=== PATIENT | male | born 1985 | race Caucasian/White ===

== ENCOUNTER 2016-09-22 09:23 | Emergency (ER) | payer SELFPAY ==
[2016-09-22 09:33] VITALS: TEMP 97.5
--- NOTE | 2016-09-22 10:40 | ED ---
Extremity Problem HPI - General Chief complaint: Extremity Problem,Nontraumatic Stated complaint: leg pain Time Seen by Provider: 09/22/16 09:35 Source: patient, RN notes reviewed Mode of arrival: ambulatory Limitations: no limitations - History of Present Illness Initial comments: 31-year-old male presents emergency Department with chief complaint of left leg pain. Patient states started 1 month ago. Patient states that he's had varicose veins in the past but states this is a worse. Patient states is a large lump on the left calf region. He states it is very painful. Patient states that he does not wearing compression stockings. 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 Patient states is painful to press on the area. Patient denies any chest pain or shortness of breath. - Related Data Previous Rx's Medication Instructions Recorded Cephalexin [Keflex] 500 mg PO Q6HR #40 cap 09/22/16 HYDROcodone/IBUPROFEN 7.5-200 1 tab PO Q6HR PRN #20 tab 09/22/16 [Vicoprofen 7.5-200 mg] Allergies Allergy/AdvReac Type Severity Reaction Status Date / Time acetaminophen [From Tylenol] Allergy Rash/Hives Verified 09/22/16 09:33 Review of Systems ROS Statement: Those systems with pertinent positive or pertinent negative responses have been documented in the HPI. ROS Other: All systems not noted in ROS Statement are negative. Past Medical History Additional Past Medical History / Comment(s): varicose veins History of Any Multi-Drug Resistant Organisms: None Reported Past Surgical History: No Surgical Hx Reported Past Psychological History: No Psychological Hx Reported Smoking Status: Current every day smoker Past Alcohol Use History: None Reported Past Drug Use History: None Reported General Exam Limitations: no limitations General appearance: alert, in no apparent distress Respiratory exam: Present: normal lung sounds bilaterally. Absent: respiratory distress, wheezes, rales, rhonchi, stridor Cardiovascular Exam: Present: regular rate, normal rhythm, normal heart sounds. Absent: systolic murmur, diastolic murmur, rubs, gallop, clicks Extremities exam: Present: other (Left calf there is a 3 cm area of erythema, swelling that is elevated approximately 2-3 cm areas moderately tender with palpation) Neurological exam: Present: alert, oriented X3, CN II-XII intact Skin exam: Present: warm, dry Course Vital Signs 09/22/16 09:31 Temperature 97.5 F L Pulse Rate 60 Respiratory 20 Rate Blood Pressure 124/56 O2 Sat by Pulse 100 Oximetry Medical Decision Making - Medical Decision Making 31-year-old male presents emergency Department with chief complaint of left calf pain, swelling. Patient appears to have a tortuous vessel versus infection. This most likely is a superficial bite is from varicosity. Patient Presented to have infection as his been going on for 1 month. Patient will be started on antibiotics prophylactically and felt up with Dr. Dao vascular surgeon. Patient will apply warm compresses. Disposition Clinical Impression: Superficial thrombophlebitis of left leg, Left leg pain Disposition: HOME SELF-CARE Condition: Stable Instructions: Superficial Thrombophlebitis (ED) Additional Instructions: Apply warm compresses 20 minutes at a time. Please follow-up with vascular surgery as directed.Please return to the Emergency Department if symptoms worsen or any other concerns. Prescriptions: Cephalexin [Keflex] 500 mg PO Q6HR #40 cap HYDROcodone/IBUPROFEN 7.5-200 [Vicoprofen 7.5-200 mg] 1 tab PO Q6HR PRN #20 tab PRN Reason: Pain Referrals: None,Stated [Primary Care Provider] - 1-2 days Greg Dao MD [STAFF PHYSICIAN] - 1-2 days
--- NOTE | 2016-09-22 10:42 | US ---
EXAMINATION TYPE: US extremity nonvasc mass LT DATE OF EXAM: 09/22/2016 10:20 AM COMPARISON: No previous CLINICAL HISTORY: 31-year-old male with left leg pain, palpable area posterior left lower leg. TECHNIQUE: Targeted scanning at the painful palpable site along the left calf. FINDINGS: TECHNOLOGIST NOTES: Scanned posterior left lower leg palpable/painful area: thrombus seen within sup erficial vein. However, there is a 2.9 x 2.1 x 3.4cm complex area: Possible enlarged area of tortuou s thrombosed vessel vs. mass vs. other. IMPRESSION: Targeted scanning at the palpable painful area along the left calf shows SVT and a heterogeneous comp falguni 3.4 cm masslike area. The exact etiology is unclear. This could represent an enlarged, ectatic th rombosed vein, hematoma, phlegmon, or mass. Careful clinical correlation is recommended. Close clinic al follow-up is also recommended. If the finding persists or enlarges, contrast enhanced MRI can be p erformed.
[2016-09-22 11:46] VITALS: BP 125/60; PULSE 72; RESP 16
== END 2016-09-22 11:44 | disposition home or self-care (01) ==
LOC: EC 09:23
DX: I80.02 Phlebitis and thrombophlebitis of superficial vessels of left lower extremity (principal); F17.200 Nicotine dependence, unspecified, uncomplicated; Z88.8 Allergy status to other drugs, medicaments and biological substances
CPT/HCPCS: 99283

== ENCOUNTER 2017-11-04 19:44 | Emergency (ER) | payer OTHER ==
[2017-11-04 20:39] VITALS: BP 117/60; PULSE 58; RESP 16; TEMP 97.7
[2017-11-04] MEDS ORDERED: PROPARACAINE 0.5% OPHTH DROPS 15 ML BTL LEFT EYE STA (20:42)
--- NOTE | 2017-11-04 21:03 | ED ---
General Adult HPI - General Chief complaint: Eye Problems Stated complaint: metal in eye Time Seen by Provider: 11/04/17 20:41 Source: patient, RN notes reviewed Mode of arrival: ambulatory Limitations: no limitations - History of Present Illness Initial comments: Patient 32-year-old male presenting to the emergency room today with a chief complaint of foreign body to left eye. He states her tetanus car today. States he got a piece of metal in his eye when he was underneath a car. He states he thought it was be centered present. Unable to get out. He states he can see just underneath the pupil. Patient states is unsure of his tetanus status. He denies any other complaints or symptoms. Patient denies any recent fever, chills, shortness of breath, chest pain, back pain, abdominal pain, nausea or vomiting, constipation or diarrhea, headaches or visual changes, or any other complaints. - Related Data Previous Rx's Medication Instructions Recorded Cephalexin [Keflex] 500 mg PO Q6HR #40 cap 09/22/16 HYDROcodone/IBUPROFEN 7.5-200 1 tab PO Q6HR PRN #20 tab 09/22/16 [Vicoprofen 7.5-200 mg] Tobramycin 0.3% Ophth Soln [Tobrex 1 - 2 drop BOTH EYES QID 7 Days ml 11/04/17 0.3% Ophth Soln] Allergies Allergy/AdvReac Type Severity Reaction Status Date / Time acetaminophen [From Tylenol] Allergy Rash/Hives Verified 11/04/17 20:39 Review of Systems ROS Statement: Those systems with pertinent positive or pertinent negative responses have been documented in the HPI. ROS Other: All systems not noted in ROS Statement are negative. Past Medical History Past Medical History: Deep Vein Thrombosis (DVT) Additional Past Medical History / Comment(s): varicose veins History of Any Multi-Drug Resistant Organisms: None Reported Past Surgical History: No Surgical Hx Reported Past Psychological History: No Psychological Hx Reported Smoking Status: Current every day smoker Past Alcohol Use History: None Reported Past Drug Use History: None Reported General Exam - General Exam Comments Initial Comments: General: The patient is awake and alert, in no distress, and does not appear acutely ill. Eye: Pupils are equal, round and reactive to light, extra-ocular movements are intact. No nystagmus. There is normal conjunctiva bilaterally. No signs of icterus. Patient does have a rust ring at the 6 o'clock position. Ears, nose, mouth and throat: There are moist mucous membranes and no oral lesions. Neck: The neck is supple, there is no tenderness or JVD. Musculoskeletal: Normal ROM, no tenderness. Strength 5/5. Sensation intact. Pulses equal bilaterally 2+. Neurological: A&O x 3. CN II-XII intact, There are no obvious motor or sensory deficits. Coordination appears grossly intact. Speech is normal. Skin: Skin is warm and dry and no rashes or lesions are noted. Psychiatric: Cooperative, appropriate mood & affect, normal judgment. Limitations: no limitations Course Vital Signs 11/04/17 20:35 Temperature 97.7 F Pulse Rate 58 L Respiratory 16 Rate Blood Pressure 117/60 O2 Sat by Pulse 99 Oximetry Procedures - Procedures Initial comment: Patient's left eye anesthetized with a cane. This did relieve his symptoms. Patient's left eye was stained with forcing. Metallic body at the 6 o'clock position. Small spud was used to remove the foreign body. Rust ring does remain. No [place] brush available to remove rust ring. Patient tolerated procedure well. Medical Decision Making - Medical Decision Making Patient's left eye was anesthetized locally with proparacaine. A small spot was used to remove the metallic foreign body. Rust ring does remain. We currently do not have an [place] brush available here in the ER to remove rust ring. Patient advised that he'll have to follow-up with ophthalmology tomorrow. Patient's tetanus updated. Started on antibiotic drops. Disposition Clinical Impression: Foreign body, eye, Corneal rust ring of left eye Disposition: HOME SELF-CARE Condition: Good Instructions: Eye Foreign Body (ED) Additional Instructions: Please follow-up with ophthalmology tomorrow to have rust ring removed. Please continue antibiotic drops. Please return to emergency room for any other concerns. Prescriptions: Tobramycin 0.3% Ophth Soln [Tobrex 0.3% Ophth Soln] 1 - 2 drop BOTH EYES QID 7 Days ml Referrals: None,Stated [Primary Care Provider] - 1-2 days Palmer Pretty MD [STAFF PHYSICIAN] - 1-2 days Time of Disposition: 21:23
[2017-11-04] MEDS ORDERED: DIPH,PERTUS(ACELL)TETVAC-LF 0.5 ML VIAL IM ONE (21:32)
== END 2017-11-04 21:27 | disposition home or self-care (01) ==
LOC: EC 19:44
DX: T15.02XA Foreign body in cornea, left eye, initial encounter (principal); F17.200 Nicotine dependence, unspecified, uncomplicated; Z88.6 Allergy status to analgesic agent; Y92.89 Other specified places as the place of occurrence of the external cause
CPT/HCPCS: 65220; 90471; 90715; 99283

== ENCOUNTER 2018-07-10 11:11 | Emergency (ER) | payer OTHER ==
[2018-07-10 11:29] VITALS: BP 120/79; PULSE 57; RESP 16; TEMP 98.1
[2018-07-10] MEDS ORDERED: LIDOCAINE/EPINEPHR/TETRACAINE 5 ML BOTTLE TOPICAL ONE (11:58)
--- NOTE | 2018-07-10 12:45 | ED ---
Wound/Laceration HPI - General Chief Complaint: Wound/Laceration Stated Complaint: [facility] facial laceration Time Seen by Provider: 07/10/18 11:52 Source: patient, RN notes reviewed Mode of arrival: ambulatory Limitations: no limitations - History of Present Illness Initial Comments: 33-year-old male presents emergency Department with chief complaint of facial laceration. Patient states he was using a tire bar to pry on large tire states it slipped striking him in the face. There is no loss conscious. Patient states pain is pretty significant to his left cheek. Denies any blurred vision no ocular injury denies any pain with ocular movement denies any headache, loss conscious, dizziness, focal weakness, nausea vomiting. Patient's tetanus is up- to-date within last one year. - Related Data Home Medications Medication Instructions Recorded Confirmed Ibuprofen [Motrin Ib] 400 mg PO Q6H PRN 07/10/18 07/10/18 Previous Rx's Medication Instructions Recorded Cephalexin [Keflex] 500 mg PO Q6HR #28 cap 07/10/18 Ibuprofen [Motrin] 600 mg PO Q8HR PRN #30 tab 07/10/18 Allergies Allergy/AdvReac Type Severity Reaction Status Date / Time acetaminophen [From Tylenol] Allergy Rash/Hives Verified 07/10/18 11:59 Review of Systems ROS Statement: Those systems with pertinent positive or pertinent negative responses have been documented in the HPI. ROS Other: All systems not noted in ROS Statement are negative. Past Medical History Past Medical History: Deep Vein Thrombosis (DVT) Additional Past Medical History / Comment(s): varicose veins History of Any Multi-Drug Resistant Organisms: None Reported Past Surgical History: No Surgical Hx Reported Past Psychological History: No Psychological Hx Reported Smoking Status: Current every day smoker Past Alcohol Use History: Rare Past Drug Use History: None Reported General Exam Limitations: no limitations General appearance: alert, in no apparent distress Head exam: Present: atraumatic, normocephalic, normal inspection Eye exam: Present: normal appearance, PERRL, EOMI. Absent: scleral icterus, conjunctival injection, periorbital swelling ENT exam: Present: normal oropharynx, mucous membranes moist, TM's normal bilaterally, normal external ear exam. Absent: other (Laceration to the left cheek approximately 2 cm) Neck exam: Present: normal inspection, full ROM. Absent: tenderness, meningismus, lymphadenopathy Respiratory exam: Present: normal lung sounds bilaterally. Absent: respiratory distress, wheezes, rales, rhonchi, stridor Cardiovascular Exam: Present: regular rate, normal rhythm, normal heart sounds. Absent: systolic murmur, diastolic murmur, rubs, gallop, clicks Neurological exam: Present: alert, oriented X3, CN II-XII intact, reflexes normal, other (Finger to nose intact bilaterally without over shooting). Absent : motor sensory deficit Course Vital Signs 07/10/18 11:22 Temperature 98.1 F Pulse Rate 57 L Respiratory 16 Rate Blood Pressure 120/79 O2 Sat by Pulse 97 Oximetry Procedures - Laceration Laceration #1 Consent Obtained: verbal consent Time Out Performed: Yes Indication: laceration Site: face Size (cm): 2 Description: irregular Anesthetic Used: lidocaine 1%, without epi Anesthesia Technique: local infiltration Amount (mls): 3 Pre-repair: wound explored, irrigated extensively, deep structures intact Type of Sutures: nylon Size of Sutures: 6-0 Number of Sutures: 4 Technique: simple, interrupted Patient Tolerated Procedure: well, no complications Medical Decision Making - Medical Decision Making 33-year-old male present emergency from for facial injury, laceration. CT was obtained secondary to trauma. No acute fracture. Laceration was closed, thoroughly cleaned we discharged on antibiotics. Return parameters discussed wound care was discussed Disposition Clinical Impression: Facial laceration, Facial contusion Disposition: HOME SELF-CARE Condition: Stable Instructions: Care For Your Stitches (ED), Facial Laceration (ED) Additional Instructions: Please return to the Emergency Department if symptoms worsen or any other concerns.., Have sutures removed in 7 days. Prescriptions: Cephalexin [Keflex] 500 mg PO Q6HR #28 cap Ibuprofen [Motrin] 600 mg PO Q8HR PRN #30 tab PRN Reason: Pain Is patient prescribed a controlled substance at d/c from ED?: No Referrals: None,Stated [Primary Care Provider] - 1-2 days Time of Disposition: 13:21
--- NOTE | 2018-07-10 12:47 | CT ---
EXAMINATION TYPE: CT facial bones wo con DATE OF EXAM: 07/10/2018 COMPARISON: None HISTORY: Facial laceration, head on left side of face with tire iron CT DLP: 498.6 mGycm CONTRAST: 0 mL of Isovue 300 The paranasal sinuses are examined in the axial plane at 2 mm thick sections. Reconstructed images i n the coronal plane were obtained. Soft tissue laceration is along the left cheek. The bilateral orbits appear intact. Zygomatic arches are intact. Greater wings of sphenoid are normal . Nasal bones are intact. Maxillary spine is intact. The maxillary sinuses are clear. The ethmoid air cells are clear. The sphenoid sinuses are clear. The frontal sinuses are clear. The septum is evaluated. There is septal deviation to the left. The ostiomeatal units are patent. IMPRESSIONS: 1. Soft tissue laceration left cheek. 2. No acute fractures evident.
[2018-07-10] MEDS ORDERED: LIDOCAINE 1% INJ 10MG/ML (20 ML MDV) SQ ONE (12:58)
== END 2018-07-10 13:50 | disposition home or self-care (01) ==
LOC: EC 11:11
DX: S01.412A Laceration without foreign body of left cheek and temporomandibular area, initial encounter (principal); F17.200 Nicotine dependence, unspecified, uncomplicated; Z88.6 Allergy status to analgesic agent; W22.8XXA Striking against or struck by other objects, initial encounter; Y93.89 Activity, other specified; Y92.69 Other specified industrial and construction area as the place of occurrence of the external cause; Y99.0 Civilian activity done for income or pay
CPT/HCPCS: 12011; 70486; 99283

== ENCOUNTER 2022-07-17 16:02 | Emergency (ER) | payer OTHER ==
[2022-07-17] MEDS ORDERED: ORPHENADRINE 30 MG/ML 2 ML VIAL IM STA (16:24)
[2022-07-17] MEDS ORDERED: KETOROLAC 15 MG/ML 1 ML VIAL IM STA (16:24)
--- NOTE | 2022-07-17 16:28 | ED ---
Back Pain HPI - General Chief Complaint: Back Pain/Injury Stated Complaint: right side pain, SOB Time Seen by Provider: 07/17/22 16:15 Source: patient, family, RN notes reviewed, old records reviewed Limitations: no limitations - History of Present Illness Initial Comments: This is a nontoxic appearing 37-year-old male that presents to the emergency room with complaints of right-sided back pain has been gradually getting worse since Saturday. Worse with movement. States that he feels "locked up" . He has been using heat with some relief. He feels sharp and comes and goes. Denies any fevers. No nausea vomiting diarrhea. No shortness of breath or cough. Denies any injuries. MD Complaint: back pain -: days(s) (4) Similar Symptoms Previously: No Place: work Radiation: right leg Severity scale (1-10): 9 Quality: sharp Consistency: intermittent Improves With: other (heat and rest) Worsens With: movement, other (palpation) Associated Symptoms: denies other symptoms Treatments Prior to Arrival: heat therapy - Related Data Home Medications Medication Instructions Recorded Confirmed Ibuprofen [Motrin Ib] 400 mg PO Q6H PRN 07/10/18 07/10/18 Previous Rx's Medication Instructions Recorded Cephalexin [Keflex] 500 mg PO Q6HR #28 cap 07/10/18 Ibuprofen [Motrin] 600 mg PO Q8HR PRN #30 tab 07/10/18 Cyclobenzaprine [Flexeril] 10 mg PO TID PRN #15 tab 07/17/22 Lidocaine 5% Patch [Lidoderm] 1 patch TOPICAL DAILY 14 Days #14 07/17/22 patch Allergies Allergy/AdvReac Type Severity Reaction Status Date / Time acetaminophen [From Tylenol] Allergy Rash/Hives Verified 07/10/18 11:59 Review of Systems ROS Statement: Those systems with pertinent positive or pertinent negative responses have been documented in the HPI. ROS Other: All systems not noted in ROS Statement are negative. Past Medical History Past Medical History: Deep Vein Thrombosis (DVT) Additional Past Medical History / Comment(s): varicose veins History of Any Multi-Drug Resistant Organisms: None Reported Past Surgical History: No Surgical Hx Reported Past Psychological History: No Psychological Hx Reported Smoking Status: Current every day smoker Past Alcohol Use History: Rare Past Drug Use History: None Reported General Exam Limitations: no limitations General appearance: alert, in no apparent distress Head exam: Present: atraumatic Eye exam: Present: normal appearance. Absent: scleral icterus, conjunctival injection, periorbital swelling Neck exam: Present: full ROM. Absent: tenderness, meningismus Respiratory exam: Present: normal lung sounds bilaterally. Absent: respiratory distress, accessory muscle use Cardiovascular Exam: Present: regular rate GI/Abdominal exam: Present: soft. Absent: distended, tenderness, rigid Extremities exam: Present: full ROM, normal capillary refill. Absent: tenderness, pedal edema, calf tenderness Back exam: Present: normal inspection, full ROM, muscle spasm, paraspinal tenderness (lumbar). Absent: CVA tenderness (R), CVA tenderness (L), rash noted Expanded Back exam: Absent: saddle anesthesia Back exam: Negative Straight Leg Raising: Left, Right Neurological exam: Present: alert, oriented X3 Psychiatric exam: Present: normal affect, normal mood Skin exam: Present: warm, dry, normal color. Absent: cyanosis, diaphoretic, petechiae, pallor Course Vital Signs 07/17/22 07/17/22 16:07 17:53 Temperature 98 F 98.8 F Pulse Rate 74 57 L Respiratory 16 18 Rate Blood Pressure 127/60 146/69 O2 Sat by Pulse 98 97 Oximetry Medical Decision Making - Medical Decision Making Well-appearing male presents to the emergency room ambulatory with complaints of right sided back pain, feeling "locked up" with spasms. Worse with movement. Feels some improvement with heat. Denies any trauma but does admit to repetitive movements at work. He had to leave work today related to the pain. Patient denies any dysuria or hematuria. No fevers. No abdominal pain. No testicular pain. No red flag symptoms. Denies any saddle anesthesia. Full range of motion of lower extremities. Patient was given Toradol and Norflex with improvement. He was also given a Lidoderm patch. This is likely muscle spasms. I provided a prescription for Flexeril and Lidoderm patches. I did explain that this pain may take several days to several weeks to completely recover. I also recommended Tylenol and or Motrin as needed. Patient and family member are agreeable to this plan of care. Case discussed with Dr. Gonzalez. Disposition Clinical Impression: Back pain Disposition: HOME SELF-CARE Condition: Good Instructions (If sedation given, give patient instructions): Back Pain (ED), Lower Back Exercises (ED) Additional Instructions: Rest, apply heat, and take Tylenol, Motrin and use Lidoderm patches as prescribed. Use Flexeril as a muscle relaxer. Do not drive or operate heavy machinery when using this medication. Follow-up with the primary care doctor next week. Return to the emergency room with any new or concerning symptoms. Prescriptions: Cyclobenzaprine [Flexeril] 10 mg PO TID PRN #15 tab PRN Reason: Muscle Spasm Lidocaine 5% Patch [Lidoderm] 1 patch TOPICAL DAILY 14 Days #14 patch Is patient prescribed a controlled substance at d/c from ED?: No Referrals: None,Stated [Primary Care Provider] - 1-2 days Time of Disposition: 17:41
[2022-07-17 17:55] VITALS: BP 146/69; PULSE 57; RESP 18; TEMP 98.8
[2022-07-17] MEDS ORDERED: LIDOCAINE 5% PATCH TOPICAL SCH (18:00)
== END 2022-07-17 17:53 | disposition home or self-care (01) ==
LOC: EC 16:02
DX: M54.50 Low back pain, unspecified (principal); F17.200 Nicotine dependence, unspecified, uncomplicated; Z86.718 Personal history of other venous thrombosis and embolism
CPT/HCPCS: 99283 ×2; 96372 ×3; J2360; J1885

== ENCOUNTER 2024-03-26 10:56 | Emergency (ER) | payer SELFPAY ==
[2024-03-26 11:01] VITALS: RESP 18; TEMP 97.7
--- NOTE | 2024-03-26 11:17 | ED ---
General Adult HPI - General Chief complaint: Extremity Injury, Lower Stated complaint: poss PE Time Seen by Provider: 03/26/24 11:00 Source: patient Mode of arrival: ambulatory Limitations: no limitations - History of Present Illness Initial comments: 38-year-old male presents emergency department with right leg pain. States he has had a history of a DVT in his left leg. He is not currently on any anticoagulation. He started having pain in his right calf with swelling 24 hours ago. He does have varicose veins. Patient was urged to come in to rule out DVT. Patient follows with Dr. Dao. No history of PE. No chest pain or difficulty breathing. No other alleviating, precipitating or modifying factors - Related Data Home Medications Medication Instructions Recorded Confirmed Ibuprofen [Motrin Ib] 400 mg PO Q6H PRN 07/10/18 07/10/18 Previous Rx's Medication Instructions Recorded Cephalexin [Keflex] 500 mg PO Q6HR #28 cap 07/10/18 Ibuprofen [Motrin] 600 mg PO Q8HR PRN #30 tab 07/10/18 Cyclobenzaprine [Flexeril] 10 mg PO TID PRN #15 tab 07/17/22 Lidocaine 5% Patch [Lidoderm] 1 patch TOPICAL DAILY 14 Days #14 07/17/22 patch Cephalexin [Keflex] 500 mg PO Q6HR #28 cap 03/26/24 Allergies Allergy/AdvReac Type Severity Reaction Status Date / Time acetaminophen [From Tylenol] Allergy Rash/Hives Verified 03/26/24 11:01 Review of Systems ROS Statement: Those systems with pertinent positive or pertinent negative responses have been documented in the HPI. ROS Other: All systems not noted in ROS Statement are negative. Past Medical History Past Medical History: Deep Vein Thrombosis (DVT) Additional Past Medical History / Comment(s): varicose veins History of Any Multi-Drug Resistant Organisms: None Reported Past Surgical History: No Surgical Hx Reported Past Psychological History: No Psychological Hx Reported Smoking Status: Current every day smoker Past Alcohol Use History: Rare Past Drug Use History: None Reported General Exam Limitations: no limitations General appearance: alert, in no apparent distress Head exam: Present: atraumatic, normocephalic, normal inspection Eye exam: Present: normal appearance, PERRL, EOMI. Absent: scleral icterus, conjunctival injection, periorbital swelling ENT exam: Present: normal exam, mucous membranes moist Neck exam: Present: normal inspection. Absent: tenderness, meningismus, lymphadenopathy Respiratory exam: Present: normal lung sounds bilaterally. Absent: respiratory distress, wheezes, rales, rhonchi, stridor Cardiovascular Exam: Present: regular rate, normal rhythm, normal heart sounds. Absent: systolic murmur, diastolic murmur, rubs, gallop, clicks GI/Abdominal exam: Present: soft, normal bowel sounds. Absent: distended, tend erness, guarding, rebound, rigid Extremities exam: Present: full ROM, tenderness (And swelling to the right calf. There is moderate amount of varicose veins), normal capillary refill. Absent: pedal edema, joint swelling, calf tenderness Back exam: Present: normal inspection Neurological exam: Present: alert, oriented X3, CN II-XII intact Psychiatric exam: Present: normal affect, normal mood Skin exam: Present: warm, dry, intact, normal color. Absent: rash Course Vital Signs 03/26/24 03/26/24 10:58 13:13 Temperature 97.7 F Pulse Rate 67 77 Respiratory 18 18 Rate Blood Pressure 120/79 124/74 O2 Sat by Pulse 99 99 Oximetry Medical Decision Making - Medical Decision Making Was pt. sent in by a medical professional or institution (, PA, ASSOCIATE PROFESSOR OF LIBRARY MEDIA, urgent care, hospital, or long term...) When possible be specific @ -No Did you speak to anyone other than the patient for history (EMS, parent, family, police, friend...)? What history was obtained from this source @ -No Did you review nursing and triage notes (agree or disagree)? Why? @ -I reviewed and agree with nursing and triage notes Were old charts reviewed (outside hosp., previous admission, EMS record, old EKG, old radiological studies, urgent care reports/EKG's, long term records)? Report findings @ -No old charts were reviewed Differential Diagnosis (chest pain, altered mental status, abdominal pain women, abdominal pain men, vaginal bleeding, weakness, fever, dyspnea, syncope, headache, dizziness, GI bleed, back pain, seizure, CVA, palpatations, mental health, musculoskeletal)? @ -DVT, PE, cellulitis, venous insufficiency EKG interpreted by me (3pts min.). @ -Yes and demonstrate sinus rhythm with a rate of 69. [place] interal 129. QRS 88. QTc of 404. No acute ST segment elevations or depressions X-rays interpreted by me (1pt min.). @ -None done CT interpreted by me (1pt min.). @ -None done U/S interpreted by me (1pt. min.). @ -Yes and demonstrates no DVT What testing was considered but not performed or refused? (CT, X-rays, U/S, labs)? Why? @ -None What meds were considered but not given or refused? Why? @ -None Did you discuss the management of the patient with other professionals (professionals i.e. , PA, ASSOCIATE PROFESSOR OF [employer], lab, RT, psych nurse, clinical social worker, middle school football coach, teacher, radiation safety officer, caseworker intake)? Give summary @ -No Was smoking cessation discussed for >3mins.? @ -No Was critical care preformed (if so, how long)? @ -No Were there social determinants of health that impacted care today? How? (Homelessness, low income, unemployed, alcoholism, drug addiction, transportation, low edu. Level, literacy, decrease access to med. care, [facility], rehab)? @ -No Was there de-escalation of care discussed even if they declined (Discuss DNR or withdrawal of care, Hospice)? DNR status @ -No What co-morbidities impacted this encounter? (DM, HTN, Smoking, COPD, CAD, Cancer, CVA, ARF, Chemo, Hep., AIDS, mental health diagnosis, sleep apnea, morbid obesity)? @ -History of DVT Was patient admitted / discharged? Hospital course, mention meds given and route, prescriptions, significant lab abnormalities, going to OR and other pertinent info. @ -Upon arrival patient seen and evaluated in advanced triage. Ultrasound ordered. Ultrasound negative for DVT. Swelling is suspected to be coming from the varicose veins with venous insufficiency. Recommend that the patient wear his compression stockings for which she states he voided. He has no chest pain or difficulty breathing at this time. I do recommend that the patient follow-up with Dr. Dao. Have a repeat ultrasound done in 1 week if his symptoms persist. Patient was agreeable to this and he was discharged in stable condition Undiagnosed new problem with uncertain prognosis? @ -No Drug Therapy requiring intensive monitoring for toxicity (Heparin, Nitro, Insulin, Cardizem)? @ -No Were any procedures done? @ -No Diagnosis/symptom? @ -Acute right lower extremity swelling, varicose veins, history of DVT, rule out DVT Acute, or Chronic, or Acute on Chronic? @ -Acute Uncomplicated (without systemic symptoms) or Complicated (systemic symptoms)? @ -Complicated Side effects of treatment? @ -No Exacerbation, Progression, or Severe Exacerbation? @ -No Poses a threat to life or bodily function? How? (Chest pain, [place], [place], pneumonia, PE, COPD, DKA, ARF, appy, cholecystitis, CVA, Diverticulitis, Homicidal, Suicidal, threat to staff... and all critical care pts) @ -No Disposition Clinical Impression: Right leg swelling, Varicose veins of legs Disposition: HOME SELF-CARE Condition: Stable Instructions (If sedation given, give patient instructions): Leg Edema (ED) Additional Instructions: And elevate your leg. If the swelling persists in a few days, attempt the antibiotic. Return for repeat ultrasound if symptoms do not improve in 1 week Prescriptions: Cephalexin [Keflex] 500 mg PO Q6HR #28 cap Is patient prescribed a controlled substance at d/c from ED?: No Referrals: None,Stated [Primary Care Provider] - 1-2 days Time of Disposition: 12:54
--- NOTE | 2024-03-26 12:29 | US ---
EXAMINATION TYPE: US venous doppler duplex LE RT DATE OF EXAM: 03/26/2024 11:18 AM COMPARISON: NONE CLINICAL INDICATION: Male, 38 years old with history of leg swelling, hx DVT; SIDE PERFORMED: Right TECHNIQUE: The lower extremity deep venous system is examined utilizing real time linear array sonog danuta with graded compression, doppler sonography and color-flow sonography. VESSELS IMAGED: Common Femoral Vein Deep Femoral Vein Greater Saphenous Vein * Femoral Vein Popliteal Vein Small Saphenous Vein * Proximal Calf Veins (* superficial vessels) Right Leg: Negative for DVT IMPRESSION: No evidence for DVT within the right lower extremity imaged from the groin to the upper c jaclyn.
[2024-03-26 13:16] VITALS: BP 124/74; PULSE 77
== END 2024-03-26 13:14 | disposition home or self-care (01) ==
LOC: EC 10:56
CPT/HCPCS: 93005; 99283